=== PATIENT | male | born 1955 | race Caucasian/White ===

== ENCOUNTER → 2020-02-19 10:51 | Outpatient (CLI) | payer OTHER, SELFPAY ==
[2020-02-19 12:38] LABS: COVID19 -Nasal RAPID Negative (Negative)
== END ==
PROVIDERS: Visit Provider Surgery
DX: Z01.812 Encounter for preprocedural laboratory examination (principal); Z20.828 Contact with and (suspected) exposure to other viral communicable diseases
CPT/HCPCS: 87635; C9803

== ENCOUNTER 2020-02-20 11:43 | Day surgery (SDC) | payer OTHER, SELFPAY ==
[2020-02-15 10:54] VITALS: BMI 32.7
[2020-02-20] VITALS (8 sets, daily range): BP systolic 87–135; BP diastolic 57–86; PULSE 62–76; RESP 11–21; TEMP 36.2–36.6; O2SAT 95–98; BMI 31.1
[2020-02-20] MEDS: ACETAMINOPHEN 325 MG TABLET 975 MG PO (12:36)
[2020-02-20] MEDS: LACTATED RINGERS 1,000 ML 100 ML IV (12:37)
--- NOTE | 2020-02-20 13:07 | PM.PREOP ---
Pre-operative Note COVID-19 COVID-19 status: Negative Interval Note History & Physical reviewed/Exam performed by Physician: Yes Changes to H&P: No
--- NOTE | 2020-02-20 13:14 | SUR.OPER ---
Supine on padded OR bed, head on pillow, arms secured on padded arm boards at <90 degrees abduction, legs uncrossed, safety belt at thigh, tape over blanket over lower legs.
[2020-02-20] MEDS: CEFAZOLIN 2 GM/100 ML FROZ.PIGGY IV (13:27)
[2020-02-20] MEDS: BUPIVACAINE 0.25% (PF) VIAL 30 ML INJ (13:39)
--- NOTE | 2020-02-20 15:00 | P.OP_ITS ---
Operative Date/Time/Diagnoses Date of procedure: 02/20/20 Time of procedure: 15:00 Pre-op diagnosis: Right inguinal hernia Post-op diagnosis: same Procedure & Clinicians Procedure: Open right inguinal hernia repair with mesh Same procedure as scheduled: Yes Indications: 64-year-old male with a symptomatic right inguinal hernia here for elective repair Surgeon: Oracio Pack Anesthesia Type: General Operative Notes Findings: Direct and indirect hernia defect Specimen(s): none sent Estimated Blood Loss (mL): 20 Procedure in detail: The patient was placed supine on the table and bilateral lower extremity compression devices were applied. Anesthesia was induced they were intubated with an LMA and received 2g of Ancef. A time-out was performed. They were prepped and draped in sterile fashion. The right external inguinal ring and the anterior superior iliac crest were identified and marked. 1 finger breath above the inguinal ligament the skin was infiltrated with 0.25% bupivacaine. The skin incision was made here and the subcutaneous tissues were divided with electrocautery exposing the external oblique aponeurosis which was then opened along the direction of its fibers. Using blunt dissection the internal oblique aporneurosis was from the external oblique upper leaflet to identify the iliohypogastric nerve. Using a kittner the cord was carefully dissected away from the inguinal canal adjacent to the pubic tubercle. The cord including the vas deferens, testicular bloody supply, ilioguinal and genital nerve were encircled with a [place] drain. A large direct floor defect was identified and it was reduced into the abdomen and the internal oblique aporneuorsis was approximated to the inguinal ligament with Ethibond suture to reapproximate the floor. The cremasteric fibers surrounding the cord were divided using electrocautery adjacent to the internal ring.. The vas deferens and the testicular vessels were preserved and protected. There was a moderate size indirect hernia on the anterior medial aspect of the cord which was skeletonized away from the vas deferens and testicular blood supply. The indirect hernia was skeletonized back to the internal ring and reduced spontaneously into the abdomen. Given the large size of the internal ring placed a plug of mesh within the internal ring fashion this to the shelving edge. I selected a 7x 15 cm lightweight Pro Loop hernia mesh. The inferior medial aspect of the mesh was anchored to insertion of the rectus muscle to the pubic tubercle such that there was approximately 2 cm of tubercle overlap with Ethibond and then was run continuously along the inferior edge of the mesh to the shelving edge of the inguinal ligament. Interrupted 3 0 Vicryl suture was used to anchor the superior aspect of the mesh to the conjoined tendon in several places. The tails were then reapproximated loosely around the spermatic cord. The tails of the mesh were then tucked under the external oblique aponeurosis. The repair was checked for hemostasis. The wound was irrigated with sterile saline. The external oblique aponeurosis was reapproximated in a running fashion using 3 0 Vicryl. The subcutaneous tissues were reapproximated with 3 0 Vicryl skin closed with 4 0 Monocryl followed by the application of Dermabond. At the end of the operation I ensured that both testicles were within the scrotum. The sponge instrument count at the end operation was correct. The patient emerged from anesthesia was extubated and transferred to the postoperative care unit in stable condition. A total of 30 ml of of 0.25% bupivicaine was used to infiltrate the skin. Complications: none Post-operative Condition: stable Disposition: same day surgery
[2020-02-20] MEDS: OXYCODONE IR 5 MG TABLET PO (15:24)
== END 2020-02-20 15:45 | disposition home or self-care (01) ==
PROVIDERS: Referring Provider Surgery; Visit Provider Surgery
PROC: (CPT 49505; principal; 2020-02-20 13:15)
DX: K40.90 Unilateral inguinal hernia, without obstruction or gangrene, not specified as recurrent (principal); I10 Essential (primary) hypertension; G47.33 Obstructive sleep apnea (adult) (pediatric); K21.9 Gastro-esophageal reflux disease without esophagitis
CPT/HCPCS: 49505; 82962; C1781; J0690; J1100; J1885; J2250; J2405; J2704; J3010

== ENCOUNTER → 2020-03-09 11:12 | Outpatient (CLI) | payer OTHER, SELFPAY ==
[2020-03-09 13:00] LABS: COVID19 -Nasal RAPID Negative (Negative)
== END ==
PROVIDERS: Visit Provider Physician Assistant
DX: Z20.822 Contact with and (suspected) exposure to COVID-19 (principal)
CPT/HCPCS: 87635

== ENCOUNTER 2020-03-11 08:04 | Day surgery (SDC) | payer OTHER, SELFPAY ==
[2020-03-11] VITALS (9 sets, daily range): BP systolic 106–124; BP diastolic 66–78; PULSE 68–725; RESP 12–16; TEMP 36.1–36.2; O2SAT 95–98; BMI 31.3
[2020-03-11] MEDS: LACTATED RINGERS 1,000 ML 200 ML IV (08:24)
--- NOTE | 2020-03-11 09:16 | P.HP_ITS ---
History of Present Illness History of Present Illness Date Patient Seen: 03/11/20 Time Patient Seen: 09:17 Chief complaint: SDC Narrative: The patient presents for colorectal sreening. If had several prior colonoscopies most recently 5 years ago which was significant for a benign polyp. No personal or family history of colon cancer. On further history denies any recent gastrointestinal symptoms. No nausea, vomiting, abdominal pain, loss of appetite, unexplained weight loss, change in bowel habits, diarrhea, constipation, melena, hematochezia, or bright red blood per rectum. Patient History Medical History HTN (hypertension) Hyperlipemia Obesity (BMI 30.0-34.9) Family & Social History Family History Mother Heart disease Father Cancer Brother Cancer Social History: household members spouse,family Tobacco & Substance use: Smoking Status Never smoker alcohol intake current alcohol intake frequency a few times a week Substance Use Type does not use Meds Home Medications and Allergies Home Medications Medication Instructions Recorded Confirmed Type amlodipine 5 mg tablet 5 mg PO DAILY 02/14/20 03/11/20 History atorvastatin 20 mg tablet 20 mg PO DAILY 02/14/20 03/11/20 History lisinopril 20 1 tab PO DAILY 02/14/20 03/11/20 History mg-hydrochlorothiazide 12.5 mg tablet omeprazole 20 mg capsule,delayed 20 mg PO DAILY 02/14/20 03/11/20 History release [place] Heartburn+Gas 2 tab PO Q2-4H PRN 02/20/20 03/11/20 History acetaminophen [Tylenol] 650 mg PO QID PRN #60 cap 02/20/20 03/11/20 Rx Allergies Allergy/AdvReac Type Severity Reaction Status Date / Time No Known Drug Allergies Allergy Verified 02/20/20 12:30 Review of Systems Review of Systems Narrative: A 10 point review of systems is negative except as noted in the HPI Exam Vital Signs (past 8 hours): - 03/11/20 08:28 Temperature 97.2 F L Pulse Rate 75 Respiratory Rate 16 Blood Pressure 124/78 Pulse Oximetry 97 Oxygen Delivery Method Room Air Oxygen Flow Rate 0 Narrative Exam Narrative: General-no acute distress, well nourished adult male HEENT-moist mucous membranes, no scleral icterus Neck-supple, no lymphadenopathy Chest- non labored respirations, clear to auscultation bilaterally Cardiac-regular rate no peripheral edema Abdomen-soft, nontender, non distended Extremities-warm, well perfused Neurological-alert and oriented, no focal deficits Assessment & Plan Assessment and plan (1) Screening for colon cancer: Status: Acute Assessment & Plan narrative: The patient requires colorectal screening and colonoscopy is recommended. Technical details were discussed. Risks, benefits, alternatives explained. Risks including but not limited to myocardial infarction, aspiration, bleeding, pain, missed lesion, incomplete examination, need for further radiographic studies, colonic perforation, and need for major abdominal surgery were discussed. All questions were answered to their satisfaction, and they are in agreement with this plan.
--- NOTE | 2020-03-11 09:24 | SUR.OPER ---
GLASSES TO PACU WITH PATIENT IN LABELED BAG.
[2020-03-11] MEDS: fentaNYL 250 MCG/5 ML INJ IV (09:49)
--- NOTE | 2020-03-11 09:49 | PM.OP.ENDO ---
Operative Date/Time/Diagnoses Date of procedure: 03/11/20 Time of procedure: 09:49 Pre-op diagnosis: personal history of colonic polyps Post-op diagnosis: same Procedure & Clinicians Study performed: screening colonoscopy Same procedure as scheduled: Yes Indications: 64-year-old man last colonoscopy 5 years ago personal history of colonic polyps here for routine screening Surgeon: Oracio Pack Procedure Notes Procedure in detail: Medications: Conscious sedation using 5mg IV midazolam and 150mcg IV of fentanyl The history and physical was performed/updated and the patient is ASA class is 2. The procedure was discussed in detail with the patient. Potential risks complications including infection, bleeding, missed diagnosis, perforation, need for surgery, and were explained. Their questions were answered and informed consent was obtained. Patient was brought to the procedure room and placed standard monitoring equipment. The patient's vital signs were monitored continuously throughout the entire procedure. Prior to starting time-out was performed. The patient was placed in the left lateral recumbent position. Procedural sedation was administered. Examination began with a thorough inspection of the perianal area there was no evidence of fissures, fistulae, external hemorrhoids or cutaneous malignancy. The colonoscopy scope was then placed into the anal canal and was advanced to the cecum, which was identified by the ileocecal valve, the appendiceal orifice and the confluence of the taenia. The scope was then slowly withdrawn examining colon thoroughly in all directions, irrigating it of any residual stool. No masses or polyps [place] diverticulosis The patient tolerated the procedure well. They will be discharged once criteria are met. The prep was of good/excellent quality. The withdrawl time was 10 minutes. The sedation time was 19 minutes. Specimen(s): none sent Complications: none Impression: Diverticulosis Post-procedure Recommendations: Colonscopy in 10 years Disposition: same day surgery
[2020-03-11] MEDS: MIDAZOLAM 5 MG/5 ML VIAL IV (09:50)
== END 2020-03-11 10:35 | disposition home or self-care (01) ==
PROVIDERS: PCP Nurse Practitioner Family; Referring Provider Nurse Practitioner Family; Visit Provider Surgery
PROC: 0DJD8ZZ Inspection of Lower Intestinal Tract, Via Natural or Artificial Opening Endoscopic (ICD-10-PCS; CPT 45378; principal; 2020-03-11 09:15)
DX: Z12.11 Encounter for screening for malignant neoplasm of colon (principal); Z86.010 Personal history of colon polyps; I10 Essential (primary) hypertension; E66.9 Obesity, unspecified; K57.30 Diverticulosis of large intestine without perforation or abscess without bleeding
CPT/HCPCS: 45378; 99152; J2250; J3010

== ENCOUNTER 2022-04-04 11:01 | Emergency (ER) | payer OTHER, SELFPAY ==
[2022-04-04] VITALS (17 sets, daily range): BP systolic 87–142; BP diastolic 49–88; PULSE 68–95; RESP 13–24; TEMP 36.2; O2SAT 95–99; BMI 32.3
--- NOTE | 2022-04-04 11:31 | DI.CT.S_ITS ---
PROCEDURE: CT ANGIO HEAD AND NECK INDICATIONS: numbness right face speech difficulty TECHNIQUE: Pre-contrast 4.5 mm thick sections acquired from the foramen magnum to the vertex. After the administration of intravenous contrast, 1 mm thick sections acquired from the aortic arch through the [place] of [place]. Post-contrast 4.5 mm thick sections then re-acquired from the foramen magnum to the vertex. 3-dimensional kyocmeb-egljopkcs-uhfymypvph (MIP) and/or volume rendering reformats were acquired of the central intracranial vasculature and neck separately. For radiation dose reduction, the following was used: automated exposure control, adjustment of mA and/or kV according to patient size. COMPARISON: [facility], CR, XR CHEST 1V, 04/04/2022, 11:34. FINDINGS: Image quality: Mild streak artifact can be seen through the skull base. BRAIN: CSF spaces: Ventricles are normal in size and shape. Basal cisterns are patent. No extra-axial fluid collections. Brain: No midline shift. No intracranial bleeds or masses. Gabriel-white matter interface appears intact. Skull and face: Calvarium and facial bones appear intact, without suspicious lesions. Orbits appear normal. Sinuses: Sinuses and mastoids are clear. HEAD CT ANGIOGRAPHY: Anterior circulation: Intracranial internal carotid arteries are normal in size and flow. The flow within the paired anterior cerebral arteries is normal and symmetric. The flow within the middle cerebral arteries is normal and symmetric. The anterior communicating artery is seen. No aneurysms are seen. Posterior circulation: Visualized portions of the vertebral arteries demonstrate normal caliber, and join to form a normal appearing basilar artery. Flow within the posterior cerebral arteries is normal and symmetric. No aneurysms are seen. NECK CT ANGIOGRAPHY: Carotid system: The great vessels demonstrate a conventional anatomy as they arise from the aortic arch. The origins of the common carotid arteries appear patent. The common carotid arteries demonstrate normal caliber and courses. The bifurcation regions are both widely patent. The internal carotid arteries demonstrate normal calibers and courses. Posterior circulation: The origins of the vertebral arteries both appear widely patent. The more superior extracranial portions of both vertebral arteries also demonstrate normal courses and calibers. They join to form a normal appearing basilar artery. Soft tissues: Visualized neck soft tissues demonstrate no suspicious abnormalities. Bones: No suspicious bony lesions. Visualized cervical spine appears normally aligned. Moderate cervical spine degenerative changes are seen. IMPRESSION: No acute intracranial process is seen. No significant intracranial arterial abnormality is seen. Within the arteries of the neck, no hemodynamically significant stenosis can be seen. If there is strong clinical suspicion for an acute stroke, please consider a brain MRI for further evaluation, as it is more sensitive (assuming that there is no contraindication to MRI). Additional findings: Moderate cervical spine degenerative change Any quantitative measurements of stenosis were performed using NASCET criteria. Dictated by: Carl Phoenix M.D. on 04/04/2022 at 11:46 Approved by: Carl Phoenix M.D. on 04/04/2022 at 11:48
--- NOTE | 2022-04-04 11:31 | DI.RAD.S_ITS ---
PROCEDURE: XR CHEST 1V INDICATIONS: possible cva TECHNIQUE: One view of the chest was acquired. COMPARISON: None. FINDINGS: Surgical changes and devices: None. Lungs and pleura: On this semiupright portable chest examination, no large pneumothorax or large pleural effusions are seen. No focal infiltrates are seen. Mediastinum: Mediastinal contours appear normal. Heart size is normal. Bones and chest wall: No suspicious bony lesions. Overlying soft tissues appear unremarkable. IMPRESSION: Portable chest within normal limits for age. Dictated by: Carl Phoenix M.D. on 04/04/2022 at 11:08 Approved by: Carl Phoenix M.D. on 04/04/2022 at 11:09
--- NOTE | 2022-04-04 12:24 | ED_ITS ---
HPI - Neuro Symptoms/Deficit General Chief Complaint: Neuro Symptoms/Deficit Stated Complaint: right side of face is numb Time Seen by Provider: 04/04/22 11:31 Source: patient Mode of arrival: Family Vehicle History of Present Illness HPI Narrative: Patient is a 66-year-old male history of hypertension hyperlipidemia presenting today with right-sided facial numbness. He had a last known well of last night around 8:00 p.m. when he went to bed woke up this morning he felt his face is a little funny and noticed that his speech was abnormal. She was still able to understand him but it felt a little bit slurred. No numbness tingling or weakness. Patient has had a rash ongoing since February he actually just went to dermatology where he had a biopsy he was started on many medications took his 1st dose of doxycycline last night. He denies any fever chills. No chest pain abdominal pain nausea vomiting or other symptoms. On Anticoagulants: No Related Data Home Medications Medication Instructions Recorded Confirmed amlodipine 5 mg tablet 5 mg PO DAILY 02/14/20 03/11/20 atorvastatin 20 mg tablet 20 mg PO DAILY 02/14/20 03/11/20 lisinopril 20 1 tab PO DAILY 02/14/20 03/11/20 mg-hydrochlorothiazide 12.5 mg tablet omeprazole 20 mg capsule,delayed 20 mg PO DAILY 02/14/20 03/11/20 release calcium carbonate 750 2 tab PO Q2-4H PRN Heartburn 02/20/20 03/11/20 mg-simethicone 80 mg chewable tablet ([place] Heartburn-Gas) Previous Rx's Medication Instructions Recorded acetaminophen 325 mg capsule 650 mg PO QID PRN pain #60 caps 02/20/20 (Tylenol) epinephrine 0.3 mg/0.3 mL 0.3 mg (0.3 mL) IM Q5-15M PRN 04/04/22 injection, auto-injector anaphylaxis #2 ea prednisone 20 mg tablet 40 mg PO DAILY #10 tabs 04/04/22 Allergies Allergy/AdvReac Type Severity Reaction Status Date / Time No Known Drug Allergies Allergy Verified 04/04/22 11:28 Review of Systems Review of Systems ROS Unobtainable: All systems reviewed & are unremarkable except as noted in HPI and below Hematologic/Lymphatic On Anticoagulants: No Patient History Medical History HTN (hypertension) Hyperlipemia Obesity (BMI 30.0-34.9) Family History Mother Heart disease Father Cancer Brother Cancer Social History marital status: household members: spouse and family occupational status: employed Smoking Status: Never smoker alcohol intake: current substance use type: does not use Smoking Status: Never smoker alcohol intake frequency: a few times a week Substance Use Type: does not use Exam Initial Vital Signs Initial Vital Signs: Vital Signs Temperature 97.1 F L 04/04/22 11:05 Pulse Rate 76 04/04/22 11:05 Respiratory Rate 19 04/04/22 11:05 Blood Pressure 142/85 H 04/04/22 11:05 Pulse Oximetry 98 04/04/22 11:05 Oxygen Delivery Method 04/04/22 11:05 GENERAL: Alert pleasant 66-year-old male and in no acute distress. HEENT: Head atraumatic,EOMI, pupils reactive, face symmetric, moist] mucous membranes CARDIOVASCULAR: Regular rate and rhythm without murmurs, rubs or gallops. RESPIRATORY: Breath sounds equal bilaterally, no wheezes rales or rhonchi. ABDOMEN: Soft, nontender. Normoactive bowel sounds all 4 quadrants. No guarding or rebound. EXTREMITIES: Normal range of motion, no clubbing or edema. Neurovascularly intact NEUROLOGICAL: Alert and oriented x4.Normal gait and speech. Cranial nerves II through XII grossly intact. [Good ydrxlw-di-khqr, good sbzt-tm-doll, strength equal bilaterally, no dysarthria or aphasia, sensation in tact to soft touch bilaterally, no visual changes, no facial droop] SKIN: Warm, dry, no laceration, no petechiae, no rashes or lesions. Scores NIH Stroke Scale Level of Conciousness: Alert, keenly responsive Ask month/age: Answers both questions correctly. Open/close eyes, close hand: Performs both tasks correctly Best gaze horizontal: Normal Visual snow: No visual loss Facial palsy: Normal symetrical movement Left arm drift: No drift for full 10 sec Right arm drift: No drift for full 10 sec Left leg drift: No drift for full 5 sec Right leg drift: No drift for full 5 sec Limb ataxia: Absent Sensory on face/arms/legs: Mild to moderate sensory loss, can tell touch (rights bassam of face) Best language: No aphasia, normal Dysarthria: Normal Extinction or inattention: No abnormality Total NIH Stroke scale score: 1 Course Orders Ordered: Discontinued Medications Diphenhydramine HCl (Diphenhydramine 50 Mg/Ml Vial) 25 mg IV NOW ONE Stop: 04/04/22 15:46 Last Admin: 04/04/22 15:50 Dose: 25 mg Documented By: BIMAL Epinephrine HCl (Epinephrine 1 Mg/Ml) 0.5 mg IM NOW ONE Stop: 04/04/22 16:29 Last Admin: 04/04/22 16:36 Dose: 0.5 mg Documented By: BIMAL Sodium Chloride (Normal Saline 0.9%) 1,000 mls @ 150 mls/hr IV CONT ELVIE Last Infusion: 04/04/22 18:24 Dose: 0 mls/hr Documented By: Admin: 04/04/22 12:59 Dose: 150 mls/hr Documented By: BIMAL Methylprednisolone (Methylprednisolone 125 Mg/2 Ml Vial) 125 mg IV NOW ONE Stop: 04/04/22 15:46 Last Admin: 04/04/22 15:50 Dose: 125 mg Documented By: BIMAL Vital Signs Vital signs: Vital Signs - 8 hr 04/04/22 11:05 04/04/22 12:30 04/04/22 13:00 Temperature 97.1 F L Pulse Rate 76 73 70 Respiratory Rate 19 17 18 Blood Pressure 142/85 H 131/74 124/74 Pulse Oximetry 98 99 98 Oxygen Delivery Method Room Air Room Air Room Air 04/04/22 12:55 04/04/22 13:00 04/04/22 13:00 Temperature Pulse Rate 76 71 Respiratory Rate 13 20 Blood Pressure 124/74 Pulse Oximetry 99 97 Oxygen Delivery Method 04/04/22 13:30 04/04/22 13:30 04/04/22 14:00 Temperature Pulse Rate 68 Respiratory Rate 18 Blood Pressure 135/81 133/88 Pulse Oximetry 97 Oxygen Delivery Method 04/04/22 14:00 04/04/22 14:31 04/04/22 15:00 Temperature Pulse Rate 73 75 79 Respiratory Rate 21 23 21 Blood Pressure Pulse Oximetry 98 96 99 Oxygen Delivery Method 04/04/22 15:52 Temperature Pulse Rate 76 Respiratory Rate 19 Blood Pressure 128/81 Pulse Oximetry 98 Oxygen Delivery Method Room Air MDM - Neuro Symptoms/Deficit Lab Data 04/04/22 12:30 04/04/22 12:30 Labs: Lab Results 04/04/22 04/04/22 Range/Units 12:30 12:30 WBC 9.2 (4.5-11.0) X10^3/uL RBC 4.45 L (4.5-5.9) X10^6/uL Hgb 13.9 (13.5-17.5) g/dL Hct 41.4 (41-53) % MCV 93.1 (80-100) fL MCH 31.2 (26-34) PG MCHC 33.5 (30-36) % RDW 14.3 (11.6-14.8) % Plt Count 190 (150-400) X10^3/uL Neut % (Auto) 78.2 H (50-75) % Lymph % (Auto) 12.2 L (25-40) % [place] % (Auto) 7.3 (3-14) % Eos % (Auto) 1.9 L (2-4) % Baso % (Auto) 0.4 (0-2) % Neut # (Auto) 7200 H (6131-1627) /uL Lymph # (Auto) 1100 (7694-1240) /uL [place] # (Auto) 700 (0-900) /uL Eos # (Auto) 200 (0-450) /uL Baso # (Auto) 0 (0-100) /uL Sodium 135 L (137-145) mmol/L Potassium 4.2 (3.4-5.1) mmol/L Chloride 102 (98-107) mmol/L Carbon Dioxide 26 (22-32) mmol/L BUN 15 (9-20) mg/dL Creatinine 0.92 (0.66-1.25) mg/dL Estimated GFR > 60 (>60) mL/min BUN/Creatinine Ratio 16.3 (6-22) Glucose 95 (80-110) mg/dL Calcium 8.8 (8.4-10.2) mg/dL Total Bilirubin 0.7 (0.2-1.3) mg/dL AST 29 (17-59) IU/L ALT 26 (<50) IU/L Alkaline Phosphatase 76 (38-126) U/L Total Creatine Kinase 103 (55-170) U/L CK-MB (CK-2) 1.14 (<2.37) ng/mL CK-MB (CK-2) Rel Index 1.1 L (1.5-5.0) % Troponin I < 0.012 (0.01-0.034) ng/mL Total Protein 7.0 (6.3-8.2) g/dL Albumin 3.8 (3.5-5.0) g/dL Globulin 3.2 (1.7-4.1) g/dL Albumin/Globulin Ratio 1.2 (1.0-2.8) Lipase 94 (23-300) U/L Imaging Data Chest x-ray: Radiologist's Impression: XRay Report Signed Patient: Edinson Johnson MR#: [id number] : 1955 Acct:[id number] Age/Sex: 66 / M Date of Service: 04/04/22 Loc: ED Accession Number: [id number] ?? Procedure: XR chest 1V Ordering Provider: Leilani García D.O. PROCEDURE:? XR CHEST 1V ? INDICATIONS:? possible cva ? TECHNIQUE:? One view of the chest was acquired.? ? COMPARISON:? None. ? FINDINGS:? ? Surgical changes and devices:? None.? ? Lungs and pleura:? On this semiupright portable chest examination, no large pneumothorax or large pleural effusions are seen.? No focal infiltrates are seen.? ? Mediastinum:? Mediastinal contours appear normal.? Heart size is normal.? ? Bones and chest wall:? No suspicious bony lesions.? Overlying soft tissues appear unremarkable.? ? ? IMPRESSION:? ? Portable chest within normal limits for age. ? ? ? Dictated by: Carl Phoenix M.D. on 04/04/2022 at 11:08 ? ? CTA - brain/neck: Radiologist's Impression: Signed Patient: Edinson Johnson MR#: [id number] : 1955 Acct:[id number] Age/Sex: 66 / M Date of Service: 04/04/22 Loc: ED Accession Number: [id number] ?? Procedure: CT angio head and neck Ordering Provider: Leilani García D.O. PROCEDURE:? CT ANGIO HEAD AND NECK ? INDICATIONS:? numbness right face speech difficulty ? TECHNIQUE:? Pre-contrast 4.5 mm thick sections acquired from the foramen magnum to the v ertex.? After the administration of intravenous contrast, 1 mm thick sections acquired from the aortic arch through the [place].? Post-contrast 4.5 mm thick sections then re- acquired from the foramen magnum to the vertex.? 3-dimensional rhqpdro-qxsbzbyfx-zouvvfhcla (MIP) and/or volume rendering reformats were acquired of the central intracranial vasculature and neck separately. For radiation dose reduction, the following was used:? automated exposure control, adjustment of mA and/or kV according to patient size.? ? COMPARISON:? [facility], CR, XR CHEST 1V, 04/04/2022, 11:34. ? FINDINGS:? Image quality:? Mild streak artifact can be seen through the skull base. ? BRAIN:? CSF spaces:? Ventricles are normal in size and shape.? Basal cisterns are patent.? No extra-axial fluid collections.? ? Brain:? No midline shift.? No intracranial bleeds or masses.? Gabriel-white matter interface appears intact.? ? Skull and face:? Calvarium and facial bones appear intact, without suspicious le sions.? Orbits appear normal.? ? Sinuses:? Sinuses and mastoids are clear.? ? HEAD CT ANGIOGRAPHY:? Anterior circulation:? Intracranial internal carotid arteries are normal in size and flow.? The flow within the paired anterior cerebral arteries is normal and symmetric.? The flow within the middle cerebral arteries is normal and symmetric.? The anterior communicating artery is seen.? No aneurysms are seen.? ? Posterior circulation:? Visualized portions of the vertebral arteries demonstrate normal caliber, and join to form a normal appearing basilar artery.? Flow within the posterior cerebral arteries is normal and symmetric.? No aneurysms are seen.? ? NECK CT ANGIOGRAPHY:? Carotid system:? The great vessels demonstrate a conventional anatomy as they arise from the aortic arch.? The origins of the common carotid arteries appear patent.? The common carotid arteries demonstrate normal caliber and courses.? The bifurcation regions are both widely patent.? The internal carotid arteries demonstrate normal calibers and courses.? ? Posterior circulation:? The origins of the vertebral arteries both appear widely patent.? The more superior extracranial portions of both vertebral arteries also demonstrate normal courses and calibers.? They join to form a normal appearing basilar artery.? ? Soft tissues:? Visualized neck soft tissues demonstrate no suspicious abnormalities.? ? Bones:? No suspicious bony lesions.? Visualized cervical spine appears normally aligned.? Moderate cervical spine degenerative changes are seen. ? ? IMPRESSION:? ? No acute intracranial process is seen.? ? No significant intracranial arterial abnormality is seen.? ? Within the arteries of the neck, no hemodynamically significant stenosis can be seen. ? ? If there is strong clinical suspicion for an acute stroke, please consider a brain MRI for further evaluation, as it is more sensitive (assuming that there is no contraindication to MRI). ? ? ? Additional findings:? Moderate cervical spine degenerative change ? Any quantitative measurements of stenosis were performed using NASCET criteria.? ? ? Dictated by: aCrl Phoenix M.D. on 04/04/2022 at 11:46 ? ? Brain MRI: Radiologist's Impression: Signed Patient: Edinson Johnson MR#: [id number] : 1955 Acct:[id number] Age/Sex: 66 / M Date of Service: 04/04/22 Loc: ED Accession Number: [id number] ?? Procedure: MR head/brain wo con Ordering Provider: Leilani García D.O. PROCEDURE:? MR HEAD/BRAIN WO CON ? INDICATIONS:? right facial numbness ? TECHNIQUE:? Noncontrast axial T1 spin echo, axial T2 fast spin echo, sagittal and axial FLAIR, coronal T2 fast spin echo, axial gradient echo, axial diffusion and ADC through the brain.? ? COMPARISON:? [facility], CT, CT ANGIO HEAD AND NECK, 04/04/2022, 11:46. ? FINDINGS:? Image quality:? Excellent.? ? CSF Spaces:? Basal cisterns are patent.? No extra-axial fluid collections.? Ventricles are normal in size and shape.? ? Brain:? No intracranial masses or hemorrhage.? Gabriel/white matter interface is normal.? Brainstem appears normal.? Diffusion-weighted images demonstrate no acute ischemic insult.? No chronic ischemic insults.? Normal intravascular flow voids are present.? ? Skull and face:? Calvarium has normal marrow signal.? Orbits appear normal.? ? Sinuses:? Minimal bilateral maxillary sinus mucosal thickening.? There is small amount of fluid signal intensity within the left mastoid air cells.? No overlying fluid collection or soft tissue edema. ? IMPRESSION:? MRI brain without acute intracranial abnormalities.? No evidence for acute infarction or ischemia.? No mass or mass effect. ? Mild bilateral maxillary sinus disease.? Findings compatible with chronic left mastoiditis. ? ? Dictated by: Damien Hopkins M.D. on 04/04/2022 at 15:16 ? ? ECG Data Interpretation: Normal sinus rhythm rate 73 TX interval 148 QRS [address] changes no T- wave inversions no priors to compare MDM Narrative Medical decision making narrative: Patient is a 66-year-old male history of hypertension hyperlipidemia presenting today with right-sided facial numbness and some difficulty speaking. Last known well was 8:00 p.m. symptoms noticed when he woke up around 8:00 a.m. by his . His speech has improved and he is back to his baseline being in the ED however he continues to have some mild right-sided facial numbness. Workup in the emergency department included blood work a CT angio and MRI of brain. No acute CVA is found. He is an NIH stroke scale of 1. 1530 patient is re-evaluated he states now the numbness has moved from the right side of his face to the left side of his face and now he has upper lip swelling. I suspect patient is having allergic reaction rather than a CVA. It is unclear exactly what he is having allergic reaction to he recently just started a bunch of dermatologic medications including doxycycline which may or may not be contributing to the right-sided numbness. He also does received IV contrast which may also be contributing to his reaction now. He is given Solu-Medrol and Benadryl. He is no difficulty swallowing no tongue swelling no other signs of anaphylaxis. He is no other hives. His rash that has been chronic. 1630 patient is re-evaluated he continues to have swelling of his left upper lip and is now some slurring of speech. reports this is exactly how he presented early this morning. I suspect that this is allergic reaction probably from doxycycline his other medications or topical from the cooker syrup I do not necessarily think that this is an iodine allergy. However due to the slurring of speech he is now given epinephrine. Patient received epinephrine symptoms improve. reports that the slurring of speech with similar to what she noticed this morning. I suspect this is more allergic reaction. At this time both patient and feel comfortable and ready and able to go home. Discharge Plan Departure Patient Disposition: Home Clinical Impression: Allergic reaction Instructions: Anaphylaxis Activity Restrictions/Additional Instructions: *You have been diagnosed with allergic reactions *What to do: Your probably allergic to doxycycline however I can not confirm I do recommend stopping all new medications even topical medications and holding until this problem resolved *Continue to take medications as directed --> SENT TO [facility] [place] Prednisone 40 mg once a day Benadryl 25-50 mg every 6 hours if needed for itching *Follow up with your primary care provider in 2-3 days or call [phone] *Return to ER if you should have increasing lip swelling tongue swelling difficulty swallowing slurring of speech or any new, worsening or concerning symptoms Prescriptions: New prednisone 20 mg tablet 40 mg PO DAILY Qty: 10 0RF epinephrine 0.3 mg/0.3 mL auto-injector 0.3 mg IM Q5-15M PRN (Reason: anaphylaxis) Qty: 2 0RF Rx Instructions: do not exceed 3 doses per episode No Action lisinopril-hydrochlorothiazide 20-12.5 mg tablet 1 tab PO DAILY omeprazole 20 mg capsule,delayed release(DR/EC) 20 mg PO DAILY amlodipine 5 mg tablet 5 mg PO DAILY atorvastatin 20 mg tablet 20 mg PO DAILY [place] Heartburn-Gas 750-80 mg Tablet,Chewable 2 tab PO Q2-4H PRN (Reason: Heartburn) acetaminophen [Tylenol] 325 mg capsule 650 mg PO QID PRN (Reason: pain) Qty: 60 0RF Referrals: Vivien Allen ARNP [Primary Care Provider] - Stand Alone Forms: Patient Portal/API
[2022-04-04 12:37] LABS: Add Manual Diff / Slide Review NO; Basophils Absolute Auto 0 /uL (0-100); Basophils Percent Auto 0.4 % (0-2); Eosinophils Absolute Auto 200 /uL (0-450); Eosinophils Percent Auto 1.9 % (2-4); Hematocrit 41.4 % (41-53); Hemoglobin 13.9 g/dL (13.5-17.5); Lymphocytes Absolute Auto 1100 /uL (1100-4500); Lymphocytes Percent Auto 12.2 % (25-40); Mean Corpuscular HGB Conc 33.5 % (30-36); Mean Corpuscular Hemoglobin 31.2 PG (26-34); Mean Corpuscular Volume 93.1 fL (80-100); Monocytes Absolute Auto 700 /uL (0-900); Monocytes Percent Auto 7.3 % (3-14); Neutrophils Absolute Auto 7200 /uL (1500-7000); Neutrophils Percent Auto 78.2 % (50-75); Platelet Count 190 X10^3/uL (150-400); Red Blood Cell Count 4.45 X10^6/uL (4.5-5.9); Red Cell Distribution Width 14.3 % (11.6-14.8); White Blood Cell Count 9.2 X10^3/uL (4.5-11.0)
[2022-04-04 12:51] LABS: Alanine Aminotransferase 26 IU/L (<50); Albumin 3.8 g/dL (3.5-5.0); Albumin Globulin Ratio 1.2 (1.0-2.8); Alkaline Phosphatase 76 U/L (38-126); Aspartate Aminotransferase 29 IU/L (17-59); BUN Creatinine Ratio 16.3 (6-22); Bilirubin Total 0.7 mg/dL (0.2-1.3); Blood Urea Nitrogen 15 mg/dL (9-20); Calcium 8.8 mg/dL (8.4-10.2); Carbon Dioxide 26 mmol/L (22-32); Chloride 102 mmol/L (98-107); Creatine Kinase 103 U/L (55-170); Estimated Glomerular Filt Rate > 60 mL/min (>60); Globulin 3.2 g/dL (1.7-4.1); Glucose 95 mg/dL (80-110); HEMOLYSIS < 15 (0-50); Lipase 94 U/L (23-300); Potassium 4.2 mmol/L (3.4-5.1); Sodium 135 mmol/L (137-145)
--- NOTE | 2022-04-04 12:52 | DI.MRI.S_ITS ---
PROCEDURE: MR HEAD/BRAIN WO CON INDICATIONS: right facial numbness TECHNIQUE: Noncontrast axial T1 spin echo, axial T2 fast spin echo, sagittal and axial FLAIR, coronal T2 fast spin echo, axial gradient echo, axial diffusion and ADC through the brain. COMPARISON: [facility], CT, CT ANGIO HEAD AND NECK, 04/04/2022, 11:46. FINDINGS: Image quality: Excellent. CSF Spaces: Basal cisterns are patent. No extra-axial fluid collections. Ventricles are normal in size and shape. Brain: No intracranial masses or hemorrhage. Gabriel/white matter interface is normal. Brainstem appears normal. Diffusion-weighted images demonstrate no acute ischemic insult. No chronic ischemic insults. Normal intravascular flow voids are present. Skull and face: Calvarium has normal marrow signal. Orbits appear normal. Sinuses: Minimal bilateral maxillary sinus mucosal thickening. There is small amount of fluid signal intensity within the left mastoid air cells. No overlying fluid collection or soft tissue edema. IMPRESSION: MRI brain without acute intracranial abnormalities. No evidence for acute infarction or ischemia. No mass or mass effect. Mild bilateral maxillary sinus disease. Findings compatible with chronic left mastoiditis. Dictated by: Damien Hopkins M.D. on 04/04/2022 at 15:16 Approved by: Damien Hopkins M.D. on 04/04/2022 at 15:18
[2022-04-04] MEDS: SODIUM CHLORIDE 0.9% 1,000 ML 150 ML IV (12:59)
[2022-04-04 13:03] LABS: Troponin I < 0.012 ng/mL (0.01-0.034)
[2022-04-04 13:06] LABS: CKMB % Relative Index 1.1 % (1.5-5.0); Creatine Kinase MB 1.14 ng/mL (<2.37)
[2022-04-04] MEDS: methylPREDNISolone 125 MG/2 ML VIAL IV (15:50)
[2022-04-04] MEDS: diphenhydrAMINE 50 MG/ML VIAL 25 MG IV (15:50)
[2022-04-04] MEDS: EPINEPHrine 1 MG/ML 0.5 MG IM (16:36)
== END 2022-04-04 18:29 | disposition home or self-care (01) ==
PROVIDERS: Emergency Provider Emergency Medicine; PCP Nurse Practitioner Family
DX: T78.40XA Allergy, unspecified, initial encounter (principal); R47.81 Slurred speech; R22.0 Localized swelling, mass and lump, head; R29.701 NIHSS score 1
CPT/HCPCS: 70496; 70498; 70551; 71045; 80053; 82550; 82553; 83690; 84484; 85025; 93005; 96361; 96372; 96374; 96375; 99284; 99285; J0171; J1200; J2930; Q9967